=== PATIENT | female | born 1945 | race African-American/Black ===

== ENCOUNTER → 2019-12-30 16:50 | Outpatient (CLI) | payer MEDICARE, SELFPAY ==
--- NOTE | ~2019-12-30 | MM_ITS ---
EXAMINATION: MM screening gabriella BI w nancy HISTORY: Screening TECHNIQUE: Craniocaudal and mediolateral oblique 3-D tomosynthesis images were obtained and synthetic 2-D images were generated. CAD analysis was submitted and interpreted. COMPARISON: Comparison to multiple prior studies sequentially, with oldest reviewed study dated 04/09. BREAST PARENCHYMAL COMPOSITION: There are scattered areas of fibroglandular density. FINDINGS: The right breast is stable without evidence for malignancy. There are benign breast calcifi cations. There is a mass in the lower inner quadrant of the left breast, anterior third. IMPRESSION: 1. Lobulated left breast mass measuring up to approximately 1 cm, lower inner quadrant. 2. Additional mammographic views and possible breast ultrasound are recommended. BI-RADS Category 0: Incomplete: Needs additional imaging evaluation. Reviewed, dictated and finalized at location A. IMPRESSION: 1. Lobulated left breast mass measuring up to approximately 1 cm, lower inner q uadrant. 2. Additional mammographic views and possible breast ultrasound are recommended . BI-RADS Category 0: Incomplete: Needs additional imaging evaluation.
== END ==
PROVIDERS: PCP Internal Medicine; Visit Provider Clinical Nurse Specialist
DX: Z12.31 Encounter for screening mammogram for malignant neoplasm of breast (principal)
CPT/HCPCS: 77063; 77067

== ENCOUNTER → 2020-01-16 09:18 | Outpatient (CLI) | payer MEDICARE, SELFPAY ==
--- NOTE | ~2020-01-16 | MMUS_ITS ---
EXAMINATION: MM diagnostic mammo unilat LT, US breast LT limited HISTORY: Lobulated lower inner quadrant left breast mass measuring up to 1 cm was reported on 12/30/19 20 screening mammogram examination TECHNIQUE: Additional 3-D tomosynthesis images of the left breast were performed and synthetic 2-D im ages were generated. CAD analysis was submitted and interpreted. High resolution lower inner quadrant left breast ultrasound was performed. COMPARISON: 12/30/2019 bilateral digital screening mammogram FINDINGS: MAMMOGRAPHIC FINDINGS: An approximately 4 x 7.3 mm circumscribed density is confirmed anteriorly in the lower inner quadrant of the left breast ULTRASOUND: 8:00 3 cm from nipple: Parallel circumscribed 9.7 x 4.1 x 6.8 mm sonolucency without internal vascula rity, consistent with simple cyst. This corresponds to the mammographic finding in the lower inner qu adrant IMPRESSION: 1. Benign up to 9.7 mm cyst in the lower inner quadrant of the left breast; no mammographic evidence of malignancy 2. Routine mammographic screening is recommended. BI-RADS Category 2: Benign finding(s). Reviewed, dictated and finalized at location A. IMPRESSION: 1. Benign up to 9.7 mm cyst in the lower inner quadrant of the left breast; no mammographic evidence of malignancy 2. Routine mammographic screening is recommended. BI-RADS Category 2: Benign finding(s).
== END ==
PROVIDERS: PCP Obstetrics & Gynecology; Visit Provider Clinical Nurse Specialist
DX: N60.02 Solitary cyst of left breast (principal)
CPT/HCPCS: 76642; 77065

== ENCOUNTER 2022-06-17 11:41 | Outpatient (CLI) | payer MEDICARE, SELFPAY ==
--- NOTE | 2022-06-17 12:58 | ECG_ITS ---
Measurements Intervals [place] Rate: 65 P: 48 DE: 182 QRS: -9 QRSD: 83 T: 37 QT: 418 QTc: 435 Interpretive Statements SINUS RHYTHM DELAYED PRECORDIAL R/S TRANSITION MINIMAL Q WAVES- HIGH LATERAL LEADS BASELINE ARTIFACT- V3-V5 BORDERLINE ECG NO PREVIOUS ECG AVAILABLE FOR COMPARISON Electronically Signed On 06-17-2022 13:16:12 CDT by Omar Cowart D.O.
[2022-06-17 13:45] LABS: Basophils Absolute Auto 0.1 K/mm3 (0.0-0.1); Eosinophils Absolute Auto 0.1 K/mm3 (0-0.3); Eosinophils Percent Auto 2.4 % (0-4.4); Hematocrit 35.4 % (37.0-47.0); Hemoglobin 11.8 g/dL (12.0-15.0); Immature Granulocyte Absolute 0.01 K/mm3 (0.00-0.031); Immature Granulocyte Percent A 0.2 % (0-0.5); Lymphocytes Absolute Auto 2.37 K/mm3 (0.9-3.2); Lymphocytes Percent Auto 46.9 % (18.3-44.2); Mean Corpuscular HGB Conc 33.3 g/dl (32-36); Mean Corpuscular Hemoglobin 30.3 pg (26-34); Mean Platelet Volume 10.5 fl (7.4-10.4); Monocytes Absolute Auto 0.6 K/mm3 (0.1-0.6); Monocytes Percent Auto 10.9 % (2.6-8.5); Neutrophils Percent Auto 38.6 % (45.5-73.1); Platelet Count Result 266 k/mm3 (150-375); Red Blood Count 3.89 M/mm3 (4.2-5.4); Red Cell Distribution Width 12.8 % (11.5-14.5); White Blood Count 5.1 K/mm3 (4.5-10.0)
[2022-06-17 13:53] LABS: Urine Cotinine NEGATIVE
[2022-06-17 13:55] LABS: Albumin Level 4.4 g/dL (3.5-5.1); Anion Gap 5 mmol/L (8-16); Blood Urea Nitrogen 14 mg/dL (7-17); Calcium 9.6 mg/dL (8.4-10.2); Carbon Dioxide 34 mmol/L (22-30); Chloride 102 mmol/L (98-107); Estimated Glomerular Filt Rate > 60; Glucose 96 mg/dL (65-110); Potassium 4.1 mmol/L (3.4-5.0); Sodium 141 mmol/L (137-145)
== END 2022-06-17 11:42 | disposition home or self-care (01) ==
PROVIDERS: Anesthesiology; PCP Nurse Practitioner; Visit Provider Orthopaedic Surgery
DX: M17.11 Unilateral primary osteoarthritis, right knee (principal); I10 Essential (primary) hypertension; Z01.818 Encounter for other preprocedural examination
CPT/HCPCS: 80048; 80307; 82040; 83036; 85025; 86850; 86900; 86901; 87081; 93005

== ENCOUNTER 2022-06-28 12:09 | Observation (INO) | payer MEDICARE, SELFPAY ==
[2022-06-17 11:55] VITALS: BMI 34.2
--- NOTE | 2022-06-17 12:24 | PC.NURSE ---
Report to the Outpatient Waiting Room, entrance under the green pavilion located off [facility], at time 1000 on date _06/27/22 . Planned Procedure Time: _1200 . Time changes happen often and if your time is changed the preop area will call you the afternoon before. - You and your visitor will be asked to self-screen and do not enter if you have any COVID symptoms. - Only one visitor is requested with a max of two and NO children visitors are allowed at this time. - The patient visitor may be requested to leave or wait in car when not with patient due to distancing restrictions. - A mask is optional within the hospital at this time. Patients may have clear liquids (water, carbonated beverages, clear teas, apple juice) until 3 hours prior to surgery with a maximum of 20 ounces. - No food from midnight until time of surgery - Infants may have breast milk until 4 hours before surgery, infant formula 6 hours prior to surgery. - Children will be allowed to drink immediately following surgery. If applicable, please bring a bottle or sippy cup to assist with drinking. Juice, water, soda, and popsicles are readily available. For infants on formula, please bring formula the day of surgery. Pacifiers are allowed. Take the following medications with a SIP of water the morning of surgery: ___NONE DO NOT STOP ANY OF YOUR OTHER PRESCRIPTION MEDICATIONS PRIOR TO SURGERY ?EXCEPT THE FOLLOWING Medications to discontinue per physician ___MELOXICAM PER DR BOWER. ALL VITAMINS AND SUPPLEMENTS 3 DAYS PRE OP .LAST DOSE 06/23/22 Please no make-up, nail armenian, hairspray, perfume, deodorant, or body powder the day of surgery. No jewelry (including any body piercings) or valuables the day of surgery, leave them at home. Please take a shower or bath the night before, or the morning of, surgery with an antibacterial soap. Wear comfortable, loose fitting clothing. Children are encouraged to wear pajamas. - Jewelry must be removed prior to entering the operating room. Rings and piercings that are not removed may be cut off. - The hospital will not accept responsibility for valuables. - Please leave all valuables, including medications, at home the day of surgery. If you are going home after surgery, a licensed double bottom driver must drive you home. - NO public transportation without another adult if you receive anesthesia. - We recommend that an adult stay with you for 24 hours following discharge. - We also recommend that you do not drive, make important decision, drink alcoholic beverages, or take any drugs that were not prescribed by your health care provider for at least 24 hours after your discharge time. For Pediatric surgeries, we recommend two adults accompany the child home. Follow any additional instructions given to you from your surgeon. If you or anyone in your household have experienced Covid symptoms in the past week, please notify your surgeon or the nurse liaison at the phone number below for possible testing. VERBAL AND WRITTEN instructions given to _PATIENT AND GT and asked if any additional questions and then verbalized understanding. Patient advised to call surgeon office or pre surgery nurse liaison [phone] if any additional questions.
[2022-06-17 12:44] VITALS: BP 140/74; PULSE 70; RESP 18; TEMP 36.7; O2SAT 97
--- NOTE | 2022-06-24 14:51 | PM.IMHP ---
H&P: HPI History of Present Illness Date/Time: 06/24/22 14:51 Chief Complaint: patient is a 77 year old female who sees Dr. Morton regarding her right knee. The patient has a chronic ongoing history of pain localized to her knee due to advanced primary osteoarthritis. She has aching pain with both knees with [id number] osteoarthritis and varus deformities and significant patellofemoral osteoarthritis and marginal osteophytes as well. She was seen every few months for cortisone injections and gel shots over the past few years without significant long-term relief recently. She continues to have problems with standing squatting kneeling going up and down stairs cannot walk or stand for long distances has startup pain rest pain and night pain. At this point the patient has failed a long course of conservative measures and has discussed further treatment options in detail Dr. Morton she would not like to proceed with a right total knee arthroplasty. Review of Systems Review of Systems: Ten point review of systems otherwise negative FOR[facility], [facility] Past Medical History Medical History Arthritis Chronic knee pain Colonic polyp Heart murmur HTN (hypertension) Hyperglycemia Hyperlipidemia Lumbar radiculopathy Spinal stenosis of lumbar region with neurogenic claudication Family History Family History Father No problems noted. Mother Dialysis patient Social History Social History Smoking status: Never smoker Additional smoking assessment comments: DENIES ANY FORM OF TOBACCO USE Alcohol intake: never Lack of Transportation: No Lack of Food: Never True Current Housing: I Have Housing Concerned About Future Housing: No Difficulty Paying Gas/Electric Bills: No Difficulty Paying for Meds: No Currently Unemployed: No Education: Bachelor's Degree Difficulty w/ Childcare or Family Care: No Living arrangements: with family Spiritual care concerns: No Meds Home Medications and Allergies Home Medications Medication Instructions Recorded Confirmed Type cholecalciferol (vitamin D3) 125 250 mcg PO DAILY #60 caps 11/13/20 06/17/22 Rx mcg (5,000 unit) capsule losartan 25 mg tablet 25 mg PO DAILY #90 tabs 09/06/21 06/17/22 Rx atorvastatin 20 mg tablet 20 mg PO QHS #90 tabs 12/07/21 06/17/22 Rx bimatoprost 0.01 % eye drops 1 drp EACH EYE QPM 12/07/21 06/17/22 History (Tylor) atenolol 50 mg tablet 50 mg PO DAILY #90 tabs 05/04/22 06/17/22 Rx meloxicam 7.5 mg tablet See Rx Instructions .Route 05/23/22 06/17/22 Rx .COMPLEX #180 tabs hydrochlorothiazide 25 mg tablet See Rx Instructions .Route 06/09/22 06/17/22 Rx .COMPLEX #90 tabs acetaminophen 650 mg 1,300 mg PO Q12H PRN Pain 06/17/22 06/17/22 History tablet,extended release (Tylenol Arthritis Pain) apple cider vinegar 500 mg tablet 500 mg PO DAILY 06/17/22 06/17/22 History cyanocobalamin (vitamin B-12) 2,500 mcg PO DAILY 06/17/22 06/17/22 History 2,500 mcg chewable tablet magnesium 200 mg tablet 400 mg PO DAILY 06/17/22 06/17/22 History xnuam-mza-QW-[id number]-bsj-epa-fish 1 tablet PO DAILY 06/17/22 06/17/22 History oil 200 mcg-1,000 unit-25 mg tab,chew turmeric 400 mg capsule 500 mg PO DAILY 06/17/22 06/17/22 History Allergies Allergy/AdvReac Type Severity Reaction Status Date / Time No Known Allergies Allergy Unverified 06/17/22 11:56 Exam Narrative: on exam the patient is noted be 5 ft 4 in tall 190 lb with a BMI 32.6 well-developed well-nourished female no acute distress alert oriented x3. Normal mood and affect. Hearing and vision are intact. Respiratory is good no distress. Pulse regular rate and rhythm. Abdomen benign. Extremities showed the patient's bilateral knees have range of motion 0-120 degrees. Right knee has more varus deformity
[2022-06-27] VITALS (11 sets, daily range): BP systolic 107–128; BP diastolic 65–76; PULSE 72–89; RESP 12–18; TEMP 36.4–36.6; O2SAT 95–100
[2022-06-27] MEDS: ACETAMINOPHEN 500 MG TABLET 1000 MG PO (10:09)
[2022-06-27] MEDS: LACTATED RINGERS 1,000 ML 30 ML IV CONT ×2 (10:30→14:01)
--- NOTE | 2022-06-27 11:23 | WPDHPUPDATE1 ---
History and Physical Update Update Date/Time: 06/27/22 11:23 History and Physical has been reviewed, including an updated exam of the patient. There are NO changes in the patient's condition. Risks, benefits, and alternatives have been discussed and questions answered. Patient agrees to proceed with procedure.
[2022-06-27] MEDS: TRANEXAMIC ACID 1,000MG/ISO100 1,000 MG/100 ML BAG 200 MG IVPB (11:32)
--- NOTE | 2022-06-27 11:34 | WPDANESEPPF ---
Anes - Initial Pre Proc Eval Procedure: Operation Date: 06/27/22 12:00 Proposed Procedures p Right Total Knee Arthroplasty - Krishna Morton MD Date/Time: 06/27/22 11:34 Surgeon: Krishna Morton MD Pre Op Diagnosis: OA right knee Patient Data Age: 77 Gender: F Height: 1.63 m Weight: 89.2 kg Last Vital Signs Temp 36.4 C 06/27/22 10:18 Pulse 72 06/27/22 10:18 Resp 16 06/27/22 10:18 BP 128/70 06/27/22 10:18 Pulse Ox 100 06/27/22 10:18 O2 Del Method Room Air 06/27/22 10:18 Allergies Allergy/AdvReac Type Severity Reaction Status Date / Time No Known Allergies Allergy Unverified 06/17/22 11:56 Home Medications Medication Instructions Recorded Confirmed Type cholecalciferol (vitamin D3) 125 250 mcg PO DAILY #60 caps 11/13/20 06/27/22 Rx mcg (5,000 unit) capsule losartan 25 mg tablet 25 mg PO DAILY #90 tabs 09/06/21 06/27/22 Rx atorvastatin 20 mg tablet 20 mg PO QHS #90 tabs 12/07/21 06/27/22 Rx bimatoprost 0.01 % eye drops 1 drp EACH EYE QPM 12/07/21 06/27/22 History (Tylor) atenolol 50 mg tablet 50 mg PO DAILY #90 tabs 05/04/22 06/27/22 Rx meloxicam 7.5 mg tablet See Rx Instructions .Route 05/23/22 06/27/22 Rx .COMPLEX #180 tabs hydrochlorothiazide 25 mg tablet See Rx Instructions .Route 06/09/22 06/27/22 Rx .COMPLEX #90 tabs acetaminophen 650 mg 1,300 mg PO Q12H PRN Pain 06/17/22 06/27/22 History tablet,extended release (Tylenol Arthritis Pain) apple cider vinegar 500 mg tablet 500 mg PO DAILY 06/17/22 06/27/22 History cyanocobalamin (vitamin B-12) 2,500 mcg PO DAILY 06/17/22 06/27/22 History 2,500 mcg chewable tablet magnesium 200 mg tablet 400 mg PO DAILY 06/17/22 06/27/22 History ocmjq-hse-XT-[id number]-gw2-tjx-epa-fish 1 tablet PO DAILY 06/17/22 06/27/22 History oil 200 mcg-1,000 unit-25 mg tab,chew turmeric 400 mg capsule 500 mg PO DAILY 06/17/22 06/27/22 History Patient hx anesthesia problems: none Family hx anesthesia problems: none Results Review: All pre-operative results and documents have been reviewed as part of the pre-operative evaluation. [facility] Past Medical History Medical History Arthritis Chronic knee pain Colonic polyp Heart murmur HTN (hypertension) Hyperglycemia Hyperlipidemia Lumbar radiculopathy Spinal stenosis of lumbar region with neurogenic claudication Family History Family History Father No problems noted. Mother Dialysis patient Social History Social History Smoking status: Never smoker Additional smoking assessment comments: DENIES ANY FORM OF TOBACCO USE Alcohol intake: never Lack of Transportation: No Lack of Food: Never True Current Housing: I Have Housing Concerned About Future Housing: No Difficulty Paying Gas/Electric Bills: No Difficulty Paying for Meds: No Currently Unemployed: No Education: Bachelor's Degree Difficulty w/ Childcare or Family Care: No Living arrangements: with family Spiritual care concerns: No Anes - Eval Final PreProcedure Day of Procedure 06/27/22 11:34 Patient weight: obese Heart: regular rate and rhythm Lungs: clear to auscultation Airway: Mallampati scale class II Neurological: alert and oriented Last oral intake: >/= 8 hours ASA classification: III Emergent: no Anesthetic plan: proceed Anesthesia type and monitoring: general LMA and standard monitoring Results Review: All pre-operative results and documents have been reviewed as part of the pre-operative evaluation. Informed Consent: The patient's anesthetic plan and its attendant risks and benefits were discussed with the patient/family/POA. Questions were solicited and answers provided to the satisfaction of the patient/family/POA.
[2022-06-27] MEDS: ceFAZolin 2 GM/D5W 50 ML 2 GM/50 ML BAG IVPB (11:58)
--- NOTE | 2022-06-27 12:22 | WPDANESPNB ---
Anes - Peripheral Nerve Block Date/Time: 06/27/22 12:22 I have discussed with the patient/family/POA the placement of a peripheral nerve block for post-operative pain management, including associated risks, benefits, complications, and side effects. Alternative methods of post-operative analgesia were detailed. Questions were solicited and answers provided to the satisfaction of the patient/family/POA. Time-Out: A pre-procedural Time-Out was completed immediately before starting the procedure and confirmed: Patient Identification, Site, Procedure, Patient Position and the Availability of Requisite Equipment. Clinical Indications: Acute post-operative pain management requested by the operative surgeon. Nerve Block Insertion Note Anes-nerve block: adductor canal right Patient position: supine Skin prep: chlorhexidine Needle: 22 gauge, stimulating, insulated echogenic needle. Needle length: 80 mm Technique: ultrasound Injectate: bupivacaine 0.5% with epi 5 mcg/ml (30ml no epi) and dexamethasone (mg) (4) Observations: tolerated well Complications: none Procedure start time:: 1138 Procedure end time:: 1145
[2022-06-27] MEDS: GENTAMICIN BONE CEMENT REFOBACIN 1 EACH TOPICAL (12:53)
[2022-06-27] MEDS: ceFAZolin SODIUM 1 GM VIAL IV PUSH (13:20)
--- NOTE | 2022-06-27 13:27 | W.PM.PROC2 ---
Procedure Note - Detailed Date of Procedure 06/27/22 Pre-op Diagnosis OA right knee Post-op Diagnosis Same Procedure Performed [Right] total knee arthroplasty Surgeon Krishna Morton MD Retail Operations Specialist [place] Anesthesia General Description of Procedure The patient was brought to the operating room #8. General anesthetic was administered. Placed on the operating table and sterilely prepped and draped in usual manner. A longitudinal incision was made. Tourniquet inflated to 300 mmHg for a total of [41] minutes. Dissection carried down to the fascia. Medial parapatellar incision was made and the patella subluxated laterally. Patella cut from 23 to 15 mm and sized for a 34 mm button. The tibia cut perpendicular to the long axis and femur cut in 5 degrees of valgus, a 62.5 femur trialed. 67 tibia was felt to fit the best. The soft tissue balanced, hemostasis obtained. All [address], 67 tibia, 62.5 femur, 34 mm patella, and 10AS mm poly. Motion was 0-125 degrees with good stablility and flexion and extension. The wound was closed with #2 vicryl, 2-0 Vicryl and akash. Implants [employer] Estimated Blood Loss 200 Drains No Packing No Pathology None sent Complications No immediate complications Condition Stable Disposition PACU
--- NOTE | 2022-06-27 14:21 | P.OPB_ITS ---
Procedure Note - Brief Procedure Note - Brief Date of procedure: 06/27/22 Pre-op diagnosis: OA right knee Preop diagnosis advanced primary osteoarthritis right knee joint Postop diagnosis same status post right total knee arthroplasty. Procedure performed: Right total knee arthroplasty Description of procedure: On June 27, 2022 the patient was taken the operating room for the right total knee arthroplasty. In the room at 12:15 p.m.. At that point I assisted with positioning the patient on the table placement of the tourniquet on the right thigh along with a sterile prep and drape. Once the Right lower extremity was prepped Dr. Morton into the room and proceeded with the surgical procedure. Throughout the procedure I assisted with wound retraction hemostasis with suction and cautery positioning of the leg, positioning the implant and removal of excess cement debris once the implant was cemented. At that point Dr. Morton exited the room I made sure hemostasis was obtained with suction cautery irrigated the wound throughout, I then placed Surgicel powder throughout the wound and commenced with deep joint capsule closure with number 2 Vicryl, 2. Quill. I then irrigated the wound place more Surgicel powder again cauterized any extra bleeders and then proceeded with fatty and skin closure with 2-0 Vicryl 2-0 Quill and surgical akash. I then placed a sterile dressing with Xeroform gauze 4x4s soft roll and a long Sameer wrap the toes to the thigh. Patient was awakened from anesthesia I then assisted with transfer the patient from the operating table to the stretcher for transport to recovery. The patient was in stable condition did well postop will spend the night and likely be discharged home if in good condition. I exited the room at 2:00 p.m. total blood loss was approximately 200 cc. Surgeon: Surgeon-Krishna Morton MD general surgery physician assistant-[place] PA-C
--- NOTE | 2022-06-27 15:24 | ADMGEN ---
This patient, Oscar Randle, was admitted to Medical Room 249-01. Patient/family oriented to hospital policies and general routines including ID bracelet, bed and alarms, visiting hours, pain management, procedures, bathroom and other care routines, personal items, smoking policy, room service/diet, and visiting hours. Information on how to activate the Rapid Response Team has been discussed. Patient/Family are encouraged to report perceived risks to care and to ask questions if they do not understand what they are told or what they should do.
[2022-06-27] MEDS: SENNA/DOCUSATE SODIUM TABLET 2 TAB PO (17:51)
[2022-06-27] MEDS: CELECOXIB 200 MG CAPSULE PO (17:51)
[2022-06-27] MEDS: HYDROcodone/acetaminophen (*CRX) 7.5-325 MG TABLET 1 TAB PO (17:51)
[2022-06-27] MEDS: LATANOPROST 0.005% OP SOLN 2.5 ML BTL 1 DROP EACH EYE (17:51)
[2022-06-27] MEDS: FAMOTIDINE 20 MG TABLET PO (20:35)
[2022-06-27] MEDS: LOSARTAN POTASSIUM 25 MG TABLET PO (20:35)
[2022-06-27] MEDS: RIVAROXABAN 10 MG TABLET PO (20:35)
[2022-06-27] MEDS: ATORVASTATIN 20 MG TABLET PO (20:42)
[2022-06-27] MEDS: ceFAZolin 1 GM/NS 50 ML 1 GM/50 ML BAG IVPB (20:42)
[2022-06-27] MEDS: atenoloL 50 MG TABLET PO (20:43)
--- NOTE | 2022-06-27 21:31 | PC.NURSE ---
x1-2 assist with walker to restroom this shift.
[2022-06-28] VITALS (8 sets, daily range): BP systolic 102–128; BP diastolic 42–61; PULSE 62–94; RESP 16–20; TEMP 36.6–37.2; O2SAT 98–100
--- NOTE | ~2022-06-28 | XR_ITS ---
EXAMINATION: [id number] DATE: 06/27/2022 14:11 INDICATION: Right knee arthroplasty. Postop. TECHNIQUE: 2 views of right knee were obtained. COMPARISON: None. FINDINGS: There is a total right knee arthroplasty with patellar resurfacing in near-anatomic alignme nt. No fracture. There is gas in the knee joint and soft tissues, consistent with recent surgery. Ant erior skin akash are noted. There is a moderate-sized knee joint effusion. IMPRESSION: 1. Total right knee arthroplasty in near-anatomic alignment. 2. Moderate-sized knee joint effusion. Reviewed, dictated and finalized at location A.
[2022-06-28] MEDS: ceFAZolin 1 GM/NS 50 ML 1 GM/50 ML BAG IVPB ×2 (04:12→12:23)
[2022-06-28 06:15] LABS: Basophils Percent Auto 0.1 % (0.2-1.2); Hematocrit 31.7 % (37.0-47.0); Hemoglobin 10.4 g/dL (12.0-15.0); Immature Granulocyte Absolute 0.06 K/mm3 (0.00-0.031); Immature Granulocyte Percent A 0.6 % (0-0.5); Lymphocytes Absolute Auto 1.13 K/mm3 (0.9-3.2); Lymphocytes Percent Auto 10.5 % (18.3-44.2); Mean Corpuscular HGB Conc 32.8 g/dl (32-36); Mean Corpuscular Hemoglobin 29.1 pg (26-34); Mean Corpuscular Volume 88.8 fl (80-100); Monocytes Absolute Auto 0.9 K/mm3 (0.1-0.6); Monocytes Percent Auto 8.4 % (2.6-8.5); Neutrophils Absolute Auto 8.7 K/mm3 (1.3-6.7); Neutrophils Percent Auto 80.4 % (45.5-73.1); Platelet Count Result 235 k/mm3 (150-375); Red Blood Count 3.57 M/mm3 (4.2-5.4); Red Cell Distribution Width 12.6 % (11.5-14.5); White Blood Count 10.8 K/mm3 (4.5-10.0)
[2022-06-28 06:25] LABS: Anion Gap 8 mmol/L (8-16); Blood Urea Nitrogen 21 mg/dL (7-17); Calcium 8.9 mg/dL (8.4-10.2); Carbon Dioxide 30 mmol/L (22-30); Chloride 102 mmol/L (98-107); Estimated CRCL calculation 38 ml/min; Estimated Glomerular Filt Rate 53; Glucose 150 mg/dL (65-110); Potassium 4.4 mmol/L (3.4-5.0); Sodium 140 mmol/L (137-145)
[2022-06-28] MEDS: CELECOXIB 200 MG CAPSULE PO ×2 (08:21→16:40)
[2022-06-28] MEDS: HYDROcodone/acetaminophen (*CRX) 7.5-325 MG TABLET 1 TAB PO ×4 (08:21→21:59)
[2022-06-28] MEDS: polyethylene glycoL 3350 17 GM POWD.PACK PO (08:21)
[2022-06-28] MEDS: SENNA/DOCUSATE SODIUM TABLET 2 TAB PO ×2 (08:21→16:39)
[2022-06-28] MEDS: CHOLECALCIFEROL 1,000 UNITS TABLET 10000 UNITS PO (08:22)
[2022-06-28] MEDS: FAMOTIDINE 20 MG TABLET PO ×2 (08:23→21:59)
--- NOTE | 2022-06-28 09:38 | PM.IMPN ---
Progress Note: A&P Assessment and Plan (1) HTN (hypertension): Qualifiers: Hypertension type: unspecified Qualified Code(s): I10 - Essential (primary) hypertension Code(s): I10 - Essential (primary) hypertension Status: Chronic Assessment and Plan: Continue HCTZ and losartan PRN hydralazine with systolic BP >180 Continue to monitor (2) Chronic kidney disease: Qualifiers: Chronic kidney disease stage: stage 3 (moderate) Chronic kidney disease stage 3 subtype: stage 3a (GFR 45-59) Qualified Code(s): N18.31 - Chronic kidney disease, stage 3a Code(s): N18.9 - Chronic kidney disease, unspecified Status: Chronic Assessment and Plan: Patient appears to be at baseline. Will monitor. (3) Vitamin D deficiency: Code(s): E55.9 - Vitamin D deficiency, unspecified Status: Chronic Assessment and Plan: Patient takes daily supplement. Can continue this. (4) Hyperlipidemia: Qualifiers: Hyperlipidemia type: mixed hyperlipidemia Qualified Code(s): E78.2 - Mixed hyperlipidemia Code(s): E78.5 - Hyperlipidemia, unspecified Status: Acute Assessment and Plan: Continue Lipitor. (5) Elevated liver enzymes: Code(s): R74.8 - Abnormal levels of other serum enzymes Status: Acute Assessment and Plan: Patient at baseline. Plan Thank you for the consultation. Will follow with you. Subjective Date/time seen: 06/28/22 09:38 Interval history: Patient is sitting comfortably in bed. She has no complaints at this time. Pain is well controlled. Patient is medically stable. Review of Systems Review of Systems: All systems reviewed & are unremarkable except as noted in HPI and below Exam Narrative: GENERAL: Comfortable, no acute distress HENMT: moist mucous membranes EYES: EOM intact b/l NECK: no lymphadenopathy RESPIRATORY: clear to auscultation CARDIO: RRR GI: soft, nontender, bowel sounds present SKIN: no rashes EXTREMITIES: right knee mild swelling Objective Data Vital Signs Vital Signs: Vital Signs - 24 hr 06/27/22 10:18 06/27/22 14:01 06/27/22 14:16 Temperature 97.6 F 97.9 F Pulse Rate 72 82 78 Respiratory Rate 16 13 12 Blood Pressure 128/70 119/67 107/71 Pulse Oximetry 100 99 100 Oxygen Delivery Room Air Simple Face Mask Simple Face Mask Oxygen Flow Rate 7 7 06/27/22 14:31 06/27/22 14:44 06/27/22 15:00 Temperature Pulse Rate 79 81 77 Respiratory Rate 12 14 12 Blood Pressure 121/71 121/67 110/76 Pulse Oximetry 100 98 98 Oxygen Delivery Simple Face Mask Room Air Room Air Oxygen Flow Rate 7 06/27/22 16:46 06/27/22 16:01 06/27/22 17:01 Temperature 97.6 F 97.7 F Pulse Rate 78 89 Respiratory Rate 18 18 Blood Pressure 119/68 122/74 Pulse Oximetry 97 100 Oxygen Delivery Room Air Oxygen Flow Rate 06/27/22 19:54 06/27/22 20:11 06/27/22 20:43 Temperature 97.5 F L Pulse Rate 88 88 Respiratory Rate 18 Blood Pressure 120/65 Pulse Oximetry 100 95 Oxygen Delivery Room Air Oxygen Flow Rate 06/28/22 01:00 06/28/22 04:54 Temperature 98.0 F 97.8 F Pulse Rate 88 86 Respiratory Rate 18 17 Blood Pressure 113/55 L 128/61 Pulse Oximetry 99 100 Oxygen Delivery Oxygen Flow Rate Intake/Output Intake/Output: Intake & Output 06/25/22 06/26/22 06/27/22 06/28/22 23:59 23:59 23:59 23:59 Intake Total 1510 250 Output Total 100 Balance 1410 250 Meds/Results Medications: Active Medications Generic Name Dose Route Start Last Admin Trade Name Freq PRN Reason Stop Dose Admin Hydrocodone Bitart/Acetaminophen 1 tab 06/27/22 15:16 Hydrocodone/Acetaminophen (*Crx) 7.5-325 Mg Tablet PO Q6H PRN Pain Rated 7-10 Hydrocodone Bitart/Acetaminophen 1 tab 06/27/22 17:00 06/28/22 08:21 Hydrocodone/Acetaminophen (*Crx) 7.5-325 Mg Tablet PO 1 tab Q4HR SC
--- NOTE | 2022-06-28 11:38 | PM.PNORT ---
Progress Note: A&P Assessment and Plan (1) Primary osteoarthritis of right knee: Code(s): M17.11 - Unilateral primary osteoarthritis, right knee Status: Acute Plan patient is doing well postop day 1 status post right total knee arthroplasty. Has some bloody drainage the proximal end of the wound. Dr. Morton has recommended compression dressing keep the patient overnight hold Xarelto for now. Hopefully the bloody drainage will dissipate overnight if everything looks good tomorrow we will discharge the patient home. Patient's legs elevated hold therapy for the rest the day. Patient voiced understanding agrees the above plan. Ortho will follow. Subjective Subjective Date/Time Seen: 06/28/22 Patient postop day 1 status post right total knee arthroplasty. Was having some wound drainage this morning dressing has been changed 3 times due to some bloody drainage at the proximal portion of the wound. Otherwise the wound looks good no evidence of infection no evidence of hematoma or fluid collection subcutaneously. Patient is tolerating physical therapy well otherwise feels well pain is well controlled. Patient states she could probably go home however we will keep her overnight to make sure that the bleeding calms down and does not worsen or change for the worse. Patient is otherwise eating and drinking well tolerated therapy well. Exam Narrative: Vital signs are stable patient is afebrile neurovascular the patient is intact wound is clean the proximal and shows 1 very small spot between the akash that has some bloody drainage. No obvious fluid collection is noted subcutaneously no effusion of the knee joint is noted. The drainage is bloody in nature no serous fluid or pus is noted. Patient is able to do a straight leg raise tolerated therapy well today sutures and akash are intact wound otherwise looks good. Objective Data Vital Signs Vital Signs: Vital Signs - 24 hr 06/27/22 14:01 06/27/22 14:16 06/27/22 14:31 Temperature 36.6 C Pulse Rate 82 78 79 Respiratory Rate 13 12 12 Blood Pressure 119/67 107/71 121/71 Pulse Oximetry 99 100 100 Oxygen Delivery Simple Face Mask Simple Face Mask Simple Face Mask Oxygen Flow Rate 7 7 7 06/27/22 14:44 06/27/22 15:00 06/27/22 16:46 Temperature Pulse Rate 81 77 Respiratory Rate 14 12 Blood Pressure 121/67 110/76 Pulse Oximetry 98 98 Oxygen Delivery Room Air Room Air Room Air Oxygen Flow Rate 06/27/22 16:01 06/27/22 17:01 06/27/22 19:54 Temperature 36.4 C 36.5 C Pulse Rate 78 89 Respiratory Rate 18 18 Blood Pressure 119/68 122/74 Pulse Oximetry 97 100 100 Oxygen Delivery Room Air Oxygen Flow Rate 06/27/22 20:11 06/27/22 20:43 06/28/22 01:00 Temperature 36.4 C L 36.7 C Pulse Rate 88 88 88 Respiratory Rate 18 18 Blood Pressure 120/65 113/55 L Pulse Oximetry 95 99 Oxygen Delivery Oxygen Flow Rate 06/28/22 04:54 06/28/22 09:26 06/28/22 08:22 Temperature 36.6 C Pulse Rate 86 Respiratory Rate 17 18 Blood Pressure 128/61 Pulse Oximetry 100 100 Oxygen Delivery Room Air Room Air Oxygen Flow Rate 06/28/22 09:01 Temperature 36.9 C Pulse Rate 79 Respiratory Rate 18 Blood Pressure 108/58 L Pulse Oximetry 100 Oxygen Delivery Oxygen Flow Rate Intake/Output Intake/Output: Intake & Output 06/25/22 06/26/22 06/27/22 06/28/22 23:59 23:59 23:59 23:59 Intake Total 1510 730 Output Total 100 Balance 1410 730 Meds/Results Medications: Active Medications Generic Name Dose Route Start Last Admin Trade Name Freq PRN Reason Stop Dose Admin Hydrocodone Bitart/Acetaminophen 1 tab 06/27/22 15:16 Hydrocodone/Acetaminophen (*Crx) 7.5-325 Mg Tablet PO Q6H PRN Pain Rated 7-10 Hydrocodone Bitart/Acetaminophen 1 tab 06/27/22 17:00 06/28/22 08:21 Hydrocodone/Acetaminophen (*Crx) 7.5-325 Mg Tablet PO 1 tab Q4HR ESTRELLITA Administration Atenolol 50 mg 06/27/22 21:0
--- NOTE | 2022-06-28 12:24 | PCPTNOTE ---
Per Ortho progress note, gudelia PT this afternoon. Will follow.
--- NOTE | 2022-06-28 13:21 | WPDANESPN ---
Anes - Prog Note Post-Op Date/Time: 06/28/22 13:21 Vital Signs: Last Vital Signs Temp 36.9 C 06/28/22 09:01 Pulse 79 06/28/22 09:01 Resp 18 06/28/22 09:01 BP 108/58 L 06/28/22 09:01 Pulse Ox 100 06/28/22 09:01 O2 Del Method Room Air 06/28/22 09:26 O2 Flow Rate 7 06/27/22 14:31 Pain Score (VAS): 0 I/O: Intake & Output 06/27/22 06/28/22 06/28/22 23:59 07:59 15:59 Intake Total 610 300 750 Output Total 100 400 Balance 510 300 350 Laboratory Tests 06/28/22 06:03 06/28/22 06:03 06/28/22 06/28/22 06:03 06:03 WBC 10.8 H RBC 3.57 L Hgb 10.4 L Hct 31.7 L MCV 88.8 MCH 29.1 MCHC 32.8 RDW 12.6 Plt Count 235 MPV 10.0 Immature Gran % (Auto) 0.6 H Neut % (Auto) 80.4 H Lymph % (Auto) 10.5 L Pope % (Auto) 8.4 Eos % (Auto) 0.0 Baso % (Auto) 0.1 L Lymph # (Auto) 1.13 Pope # (Auto) 0.9 H Eos # (Auto) 0.0 Baso # (Auto) 0.0 Abs Immat Gran (auto) 0.06 H Absolute Neuts (auto) 8.7 H Absolute Nucleated RBC 0.0 Nucleated RBC % 0.0 Sodium 140 Potassium 4.4 Chloride 102 Carbon Dioxide 30 Anion Gap 8 BUN 21 H Creatinine 1.20 H Estim Creat Clear Calc 38 Estimated GFR 53 L Glucose 150 H Calcium 8.9 Patient Feedback: Patient satisfied with anesthetic care.
[2022-06-28] MEDS: CYCLOBENZAPRINE HCL 10 MG TABLET PO ×2 (13:44→21:59)
[2022-06-28] MEDS: LATANOPROST 0.005% OP SOLN 2.5 ML BTL 1 DROP EACH EYE (17:03)
[2022-06-28] MEDS: atenoloL 50 MG TABLET PO (21:58)
[2022-06-28] MEDS: ATORVASTATIN 20 MG TABLET PO (21:59)
[2022-06-28] MEDS: LOSARTAN POTASSIUM 25 MG TABLET PO (21:59)
[2022-06-29] MEDS: HYDROcodone/acetaminophen (*CRX) 7.5-325 MG TABLET 1 TAB PO ×4 (01:23→14:23)
[2022-06-29 01:30] VITALS: BP 98/59; PULSE 72; RESP 16; TEMP 36.6; O2SAT 98
[2022-06-29] MEDS: SENNA/DOCUSATE SODIUM TABLET 2 TAB PO (09:03)
[2022-06-29] MEDS: FAMOTIDINE 20 MG TABLET PO (09:03)
[2022-06-29] MEDS: CELECOXIB 200 MG CAPSULE PO (09:03)
[2022-06-29] MEDS: CHOLECALCIFEROL 1,000 UNITS TABLET 10000 UNITS PO (09:03)
[2022-06-29] MEDS: polyethylene glycoL 3350 17 GM POWD.PACK PO (09:03)
[2022-06-29 10:05] VITALS: BP 108/58; PULSE 70; RESP 18; TEMP 36.5; O2SAT 97
--- NOTE | 2022-06-29 10:13 | PM.IMPN ---
Progress Note: A&P Assessment and Plan (1) HTN (hypertension): Qualifiers: Hypertension type: unspecified Qualified Code(s): I10 - Essential (primary) hypertension Code(s): I10 - Essential (primary) hypertension Status: Chronic Assessment and Plan: Continue HCTZ and losartan PRN hydralazine with systolic BP >180 Continue to monitor (2) Chronic kidney disease: Qualifiers: Chronic kidney disease stage: stage 3 (moderate) Chronic kidney disease stage 3 subtype: stage 3a (GFR 45-59) Qualified Code(s): N18.31 - Chronic kidney disease, stage 3a Code(s): N18.9 - Chronic kidney disease, unspecified Status: Chronic Assessment and Plan: Patient appears to be at baseline. Will monitor. (3) Vitamin D deficiency: Code(s): E55.9 - Vitamin D deficiency, unspecified Status: Chronic Assessment and Plan: Patient takes daily supplement. Can continue this. (4) Hyperlipidemia: Qualifiers: Hyperlipidemia type: mixed hyperlipidemia Qualified Code(s): E78.2 - Mixed hyperlipidemia Code(s): E78.5 - Hyperlipidemia, unspecified Status: Acute Assessment and Plan: Continue Lipitor. (5) Elevated liver enzymes: Code(s): R74.8 - Abnormal levels of other serum enzymes Status: Acute Assessment and Plan: Patient at baseline. Plan Thank you for the consultation. Will follow with you. Subjective Date/time seen: 06/29/22 10:13 Interval history: Patient is medically stable for discharge. Having minimal swelling in knee and pain is well controlled. Vital signs and labs are stable. Exam Narrative: GENERAL: Comfortable, no acute distress HENMT: moist mucous membranes EYES: EOM intact b/l NECK: no lymphadenopathy RESPIRATORY: clear to auscultation CARDIO: RRR GI: soft, nontender, bowel sounds present SKIN: no rashes EXTREMITIES: right knee mild swelling Objective Data Vital Signs Vital Signs: Vital Signs - 24 hr 06/28/22 13:01 06/28/22 17:01 06/28/22 21:57 Temperature 98.9 F 98.4 F 98.5 F Pulse Rate 79 62 94 Respiratory Rate 18 16 20 Blood Pressure 120/59 L 102/54 L 113/42 L Pulse Oximetry 100 100 98 Oxygen Delivery 06/28/22 21:58 06/29/22 01:30 06/29/22 08:00 Temperature 97.8 F Pulse Rate 94 72 Respiratory Rate 16 Blood Pressure 98/59 L Pulse Oximetry 98 Oxygen Delivery Room Air Intake/Output Intake/Output: Intake & Output 06/26/22 06/27/22 06/28/22 06/29/22 23:59 23:59 23:59 23:59 Intake Total 1510 2390 300 Output Total 100 800 Balance 1410 1590 300 Meds/Results Medications: Active Medications Generic Name Dose Route Start Last Admin Trade Name Freq PRN Reason Stop Dose Admin Hydrocodone Bitart/Acetaminophen 1 tab 06/27/22 15:16 Hydrocodone/Acetaminophen (*Crx) 7.5-325 Mg Tablet PO Q6H PRN Pain Rated 7-10 Hydrocodone Bitart/Acetaminophen 1 tab 06/27/22 17:00 06/29/22 09:03 Hydrocodone/Acetaminophen (*Crx) 7.5-325 Mg Tablet PO 1 tab Q4HR ESTRELLITA Administration Atenolol 50 mg 06/27/22 21:00 06/28/22 21:58 Atenolol 50 Mg Tablet PO 50 mg HS ESTRELLITA Administration Atorvastatin Calcium 20 mg 06/27/22 21:00 06/28/22 21:59 Atorvastatin 20 Mg Tablet PO 20 mg QHS ESTRELLITA Administration Celecoxib 200 mg 06/27/22 17:00 06/29/22 09:03 Celecoxib 200 Mg Capsule PO 200 mg BIDWM ESTRELLITA Administration Cyclobenzaprine HCl 10 mg 06/27/22 15:16 06/28/22 21:59 Cyclobenzaprine Hcl 10 Mg Tablet PO 10 mg Q8H PRN Administration Spasms Famotidine 20 mg 06/27/22 21:00 06/29/22 09:03 Famotidine 20 Mg Tablet PO 20 mg Q12HR ESTRELLITA Administration Hydralazine HCl 10 mg 06/28/22 09:41 Hydralazine Hcl 20 Mg/Ml Vial IV PUSH Q8H PRN Blood Pressure - High Latanoprost 1 drop 06/27/22 18:00 06/28/22 17:03 Latanoprost 0.005% Op Soln 2.
--- NOTE | 2022-06-29 14:01 | PM.PNORT ---
Progress Note: A&P Assessment and Plan (1) Primary osteoarthritis of right knee: Code(s): M17.11 - Unilateral primary osteoarthritis, right knee Status: Acute Plan Patient is ready for discharge to home today she voiced understanding agrees above plan she will start physical therapy tomorrow at our office. She will hold Xarelto take aspirin 325 mg b.i.d. x1 month for DVT prophylaxis. She will diamond picker her [place] 7.5 mg at the pharmacy today to take as needed p.r.n. pain as instructed. Patient will follow-up 2 weeks postop for staple removal and wound recheck keep an eye on the postop incision if further drainage or bleeding occurs she will call us immediately. She voiced understanding and agrees with above plan. Subjective Subjective Date/Time Seen: 06/29/22 14:01 Pt is now postop day 2 status post right total knee arthroplasty. Dressing was changed last night all morning and just now dressing is noted to be clean and dry no evidence of further bloody drainage is noted. Patient is otherwise feeling well tolerated physical therapy well up ambulating independently with a walker pain well controlled. Patient is stable and she would like to go home today. For now Dr. Morton has recommended she stop Xarelto just take aspirin twice a day 325 mg for 1 month. Review of Systems Review of Systems: Ten point review of systems negative Exam Narrative: on exam the patient is noted be in no acute distress alert oriented x3. Normal mood affect. Eating and drinking well pain is well controlled. Vital signs are stable she is afebrile neurovascular the patient is intact wound is now clean and dry calves are benign. Tolerated physical therapy well up ambulating with a walker. Objective Data Vital Signs Vital Signs: Vital Signs - 24 hr 06/28/22 17:01 06/28/22 21:57 06/28/22 21:58 Temperature 36.9 C 36.9 C Pulse Rate 62 94 94 Respiratory Rate 16 20 Blood Pressure 102/54 L 113/42 L Pulse Oximetry 100 98 Oxygen Delivery 06/29/22 01:30 06/29/22 08:00 06/29/22 10:05 Temperature 36.6 C 36.5 C Pulse Rate 72 70 Respiratory Rate 16 18 Blood Pressure 98/59 L 108/58 L Pulse Oximetry 98 97 Oxygen Delivery Room Air Intake/Output Intake/Output: Intake & Output 04/05/1906/27/22 06/28/22 06/29/22 23:59 23:59 23:59 23:59 Intake Total 1510 2390 637 Output Total 100 800 Balance 1410 1590 637 Meds/Results Medications: Active Medications Generic Name Dose Route Start Last Admin Trade Name Freq PRN Reason Stop Dose Admin Hydrocodone Bitart/Acetaminophen 1 tab 06/27/22 15:16 Hydrocodone/Acetaminophen (*Crx) 7.5-325 Mg Tablet PO Q6H PRN Pain Rated 7-10 Hydrocodone Bitart/Acetaminophen 1 tab 06/27/22 17:00 06/29/22 09:03 Hydrocodone/Acetaminophen (*Crx) 7.5-325 Mg Tablet PO 1 tab Q4HR ESTRELLITA Administration Atenolol 50 mg 06/27/22 21:00 06/28/22 21:58 Atenolol 50 Mg Tablet PO 50 mg HS ESTRELLITA Administration Atorvastatin Calcium 20 mg 06/27/22 21:00 06/28/22 21:59 Atorvastatin 20 Mg Tablet PO 20 mg QHS ESTRELLITA Administration Celecoxib 200 mg 06/27/22 17:00 06/29/22 09:03 Celecoxib 200 Mg Capsule PO 200 mg BIDWM ESTRELLITA Administration Cyclobenzaprine HCl 10 mg 06/27/22 15:16 06/28/22 21:59 Cyclobenzaprine Hcl 10 Mg Tablet PO 10 mg Q8H PRN Administration Spasms Famotidine 20 mg 06/27/22 21:00 06/29/22 09:03 Famotidine 20 Mg Tablet PO 20 mg Q12HR ESTRELLITA Administration Hydralazine HCl 10 mg 06/28/22 09:41 Hydralazine Hcl 20 Mg/Ml Vial IV PUSH Q8H PRN Blood Pressure - High Latanoprost 1 drop 06/27/22 18:00 06/28/22 17:03 Latanoprost 0.005% Op Soln 2.5 Ml Btl EACH EYE 07/27/22 17:59 1 drop QPM ESTRELLITA Administration Losartan Potassium 25 mg 06/27/22 21:00 06/28/22 21:59 Losartan Potassium 25 Mg Tablet PO 25 mg HS ESTRELLITA Administration Naloxone HCl 0.1 mg 06/27/22 15:16 Naloxone Hc
--- NOTE | 2022-06-29 14:12 | PM.DS ---
DS: Admitting Diagnosis Discharge Date June 29, 2022 Admitting Diagnosis severe primary osteoarthritis right knee discharge diagnosis severe primary osteoarthritis right knee status post right total knee arthroplasty. DS: Summary Hospital Course Hospital Course: Patient was taken the operating room on June 27, 2022 for right total knee arthroplasty. She did well postop day 1 she was having some postoperative bloody drainage from the proximal end of the wound. Dressing had to be changed several times the 1st morning after surgery. Xarelto was held compressive dressing was applied leg was elevated. Patient otherwise was doing well had no significant postoperative complications. She tolerated physical therapy well pain was well controlled vital signs are stable she is afebrile neurovascular she is intact. Postop day 2 the bloody drainage ceased in the wound was clean and dry she was still feeling well she was ready for discharge to home. Time Spent with Patient Time attestation: Total time spent providing and/or coordinating discharge services: Exam Narrative: Vital signs stable afebrile neurovascular patient is intact wound clean and dry postop take 2 cancer benign patient is alert oriented x3. Normal mood and affect. Taking p.o. well. Tolerated physical therapy well also. DS: Data Procedures/Treatments: Right total knee arthroplasty Discharge Plan Discharge Attending physician on discharge: Krishna Morton Consulting providers: Cayla Dowling Discharging Clinician: [place] Anticipated Discharge Date/Time: 06/29/22 14:05 Patient Disposition: Home, Self-Care Activity: no shower and as tolerated Diet: as tolerated Wound Care Instructions: keep dressing dry and change dressing daily Discharge Instructions: discharge home general diet activity as tolerated weightbearing as tolerated right lower extremity with a walker at all times. Start physical therapy beginning tomorrow at our office for total knee protocol. Change dressing daily watch for evidence of drainage or bleeding call the office immediately for any fevers chills increasing pain wound issues or any questions. Start aspirin 325 mg b.i.d. x1 month for DVT prophylaxis. Patient will stop Xarelto. Prescription has been called in for [place] 7.5 mg 1 tablet every 6 hours p.r.n. severe pain. Stand Alone Forms: General Discharge Information Follow-up/Referrals: Krishna Morton MD [Physician] - Discharge Medications: New hydrocodone-acetaminophen 7.5-325 mg tablet 1 tablet PO Q4H PRN (Reason: pain) Qty: 40 0RF hydrocodone-acetaminophen 7.5-325 mg Tablet 1 tablet PO Q6H PRN (Reason: Pain Rated 7-10) Qty: 40 0RF Continued cholecalciferol (vitamin D3) 125 mcg (5,000 unit) capsule 250 mcg PO DAILY Qty: 60 0RF [place] 0.01 % drops 1 drp EACH EYE QPM atorvastatin 20 mg tablet 20 mg PO QHS Qty: 90 3RF [id number] 200 mcg-1,000 unit-25 mg Tablet,Chewable 1 tablet PO DAILY acetaminophen [Tylenol Arthritis Pain] 650 mg Tablet Extended Release 1,300 mg PO Q12H PRN (Reason: Pain) magnesium 200 mg Tablet 400 mg PO DAILY cyanocobalamin (vitamin B-12) 2,500 mcg Tablet,Chewable 2,500 mcg PO DAILY turmeric 400 mg Capsule 500 mg PO DAILY apple cider vinegar 500 mg Tablet 500 mg PO DAILY losartan 25 mg tablet 25 mg PO DAILY Qty: 90 3RF Label Comments: TAKES AT HS atenolol 50 mg tablet 50 mg PO DAILY Qty: 90 1RF Label Comments: TAKES HS meloxicam 7.5 mg tablet See Rx Instructions .ROUTE .COMPLEX Qty: 180 1RF Dose Instruction: TAKE 1 TABLET BY MOUTH TWICE DAILY NEEDED FOR SWELLING Label Comments: TAKES ONE TAB AT HS Rx Instructions: TAKE 1 TABLET BY MOUTH TWICE DAILY NEEDED FOR SWELLING hydrochlorothiazide 25 mg tablet See Rx Instructions .ROUTE .COMPLEX Qty: 90 1RF Dose Instructi
== END 2022-06-29 14:42 | disposition home or self-care (01) ==
LOC: ANHSURGERY 12:13 → ANH2MED 12:13
PROVIDERS: Admitting Provider Orthopaedic Surgery; PCP Nurse Practitioner; Visit Provider Orthopaedic Surgery
PROC: (CPT 27447; principal; 2022-06-27 12:00)
DX: M17.11 Unilateral primary osteoarthritis, right knee (principal); R73.9 Hyperglycemia, unspecified; I12.9 Hypertensive chronic kidney disease with stage 1 through stage 4 chronic kidney disease, or unspecified chronic kidney disease; N18.31 Chronic kidney disease, stage 3a; E78.5 Hyperlipidemia, unspecified; E78.2 Mixed hyperlipidemia; E55.9 Vitamin D deficiency, unspecified; R74.8 Abnormal levels of other serum enzymes; M48.061 Spinal stenosis, lumbar region without neurogenic claudication; M54.16 Radiculopathy, lumbar region; M25.461 Effusion, right knee; Z79.1 Long term (current) use of non-steroidal anti-inflammatories (NSAID); Z79.899 Other long term (current) drug therapy
CPT/HCPCS: 27447; 64447; 36415; 73560; 80048; 80307; 82040; 83036; 85025; 86850; 86900; 86901; 87081; 93005; 97110; 97116; 97161; 97165; 97530; 97535; A9270; C1713; C1776; G0378; J0690; J1100; J1170; J1885; J2250; J2270; J2370; J2405; J2704; J2795; J3010; J3370; J7120